=== PATIENT | female | born 1950 | race Caucasian/White ===

== ENCOUNTER 2016-06-13 16:28 | Emergency (ER) | payer OTHER ==
[2016-06-13] MEDS ORDERED: ALBUTEROL/IPRATROPIUM 2.5/0.5 MG 3 ML/EACH DOSE ONE (17:42)
--- NOTE | 2016-06-13 17:50 | RAD ---
06/13/2016 5:44 PM CHEST - 2 VIEWS History: Cough since 06/08/2016 Comparison: 12/13/2013 Findings: Two views of the chest are obtained. The lungs are clear with out effusion or pneumothorax. The cardiomediastinal silhouette is unremarkable.. The osseous structures are intact.. IMPRESSION: No acute intrathoracic process.
== END 2016-06-13 18:58 | disposition home or self-care (01) ==
LOC: ED 16:28
DX: R05 Cough (principal); R06.2 Wheezing